=== PATIENT | female | born 1970 | race Caucasian/White ===

== ENCOUNTER → 2018-05-22 | Outpatient (CLI) | payer OTHER ==
[~2018-05-22] MED LIST: ACT30 PO; BIOTCAP2 PO; FOLI1TAB8 PO; GLIP-199 PO; IBUP-1050 PO; LOSA1TAB PO; METF-384 PO; PANT40TA PO; PREG1CAP70 PO; SIMV10TA2 PO; TRAM-10 PO
--- NOTE | 2018-05-22 11:50 | DIAGNOSTIC IMAGING REPORT ---
CHEST 2 VIEWS ROUTINE CLINICAL HISTORY: Preoperative chest COMPARISON STUDY: 11/02/2015 FINDINGS: The cardiac and mediastinal contours are normal. There is no evidence of focal pulmonary consolidation. There is no evidence of failure. No pleural effusions are visualized.[ There are postsurgical changes present within the cervical spine. IMPRESSION: No active disease in the chest. Electronically signed by: Des Galeana M.D. 05/22/2018 11:17 AM Dictated Date/Time: 05/22/2018 11:13 AM
[2018-05-22 12:04] LABS: PTT PATIENT 25.1 SECONDS (21.0-31.0)
[2018-05-22 13:38] LABS: BASO % 0.9 %; BASO ABS # 0.07 K/uL (0-0.2); HEMATOCRIT 34.9 % (37-47); HEMOGLOBIN 11.5 g/dL (12.0-16.0); IG# 0.04 K/uL (0.00-0.02); LYMPH % 26.4 %; LYMPH ABS # 2.02 K/uL (1.2-3.4); MEAN CELL VOLUME 85.1 fL (80-100); MEAN PLATELET VOLUME 10.1 fL (7.4-10.4); MONO ABS # 0.38 K/uL (0.11-0.59); NEUT % 67.2 %; NEUT ABS # 5.15 K/uL (1.4-6.5); PLATELET COUNT 304 K/uL (130-400); RED CELL DISTRIBUTION WIDTH CV 16.9 % (11.5-14.5); RED CELL DISTRIBUTION WIDTH SD 52.1 fL (36.4-46.3); WHITE BLOOD COUNT 7.66 K/uL (4.8-10.8)
[2018-05-22 13:44] LABS: BLOOD UREA NITROGEN 10 mg/dl (7-18); CALCIUM 8.3 mg/dl (8.5-10.1); CARBON DIOXIDE 24 mmol/L (21-32); CREATININE 0.89 mg/dl (0.60-1.20); GLUCOSE 195 mg/dl (70-99); POTASSIUM 4.6 mmol/L (3.5-5.1); SODIUM 137 mmol/L (136-145)
== END | disposition home or self-care (01) ==
LOC: C.CPL 09:05
PROVIDERS: ATTEND Orthopaedic Surgery Orthopaedic Surgery of the Spine
DX: Z01.810 Encounter for preprocedural cardiovascular examination (principal); Z01.811 Encounter for preprocedural respiratory examination; Z01.812 Encounter for preprocedural laboratory examination

== ENCOUNTER 2018-06-05 07:42 | Inpatient (IN) | payer BC, OTHER ==
[2018-05-17 15:36] VITALS: BMI 35.0
[2018-05-22 09:27] VITALS: BMI 34.0
--- NOTE | 2018-05-22 09:29 | PAT Medication Instructions ---
Service Date May 22, 2018. Current Home Medication List Biotin (Biotin 5000), 5 MG PO QAM Folic Acid (Folvite), 1 MG PO QAM Glipizide (Glipizide Er), 1 TAB PO BID Ibuprofen (Advil), 800 MG PO PRN Losartan Potassium (Cozaar), 25 MG PO QPM Metformin Hcl (Glucophage), 1,000 MG PO BID Pantoprazole (Protonix), 40 MG PO QPM Pioglitazone (Actos), 15 MG PO QPM Pregabalin (Lyrica), 150 MG PO BID Simvastatin (Zocor), 10 MG PO QPM Tramadol (Ultram), 50 MG PO Q4H PRN for Pain Medication Instructions For Your Scheduled Surgery -Instructions per surgeon: Ibuprofen (Advil), 800 MG PO PRN - Hold the following medications the morning of surgery: Biotin (Biotin 5000), 5 MG PO QAM Folic Acid (Folvite), 1 MG PO QAM Glipizide (Glipizide Er), 1 TAB PO BID Metformin Hcl (Glucophage), 1,000 MG PO BID - Take the following medications the morning of surgery with a sip of water: Pregabalin (Lyrica), 150 MG PO BID Tramadol (Ultram), 50 MG PO Q4H PRN for Pain (if needed, may be taken up to four hours before surgery) - Take the following medications as scheduled the night before surgery: Glipizide (Glipizide Er), 1 TAB PO BID Losartan Potassium (Cozaar), 25 MG PO QPM Metformin Hcl (Glucophage), 1,000 MG PO BID Pantoprazole (Protonix), 40 MG PO QPM Pioglitazone (Actos), 15 MG PO QPM Pregabalin (Lyrica), 150 MG PO BID Simvastatin (Zocor), 10 MG PO QPM Tramadol (Ultram), 50 MG PO Q4H PRN for Pain (if needed) If you have any questions please call us at [phone] or [phone] or [phone]
[~2018-06-05] VITALS: Ht 175.3 cm; Wt 105.9 kg
[2018-06-05] VITALS (9 sets, daily range): BP systolic 98–128; BP diastolic 62–78; PULSE 67–84; TEMP 36.4–36.8; O2SAT 92–98; BMI 34.0
[~2018-06-05 07:42] MED LIST changes: +ACETAMINOPHEN 500 MG TAB PO SCH; +CEFAZOLIN 2000MG IV PUSH 15 ML IV SCH; +CeleBREX 200 MG CAP PO SCH; +GABAPENTIN 900 MG PO SCH; +LACTATED RINGER'S 1000ML 1,000 ML IV SCH; +SCOPOLAMINE 1.5 MG TDSY TD SCH
[2018-06-05] MEDS ORDERED: MIDAZOLAM HCL 1 MG/ML 2ML VIAL ONE (09:24)
[2018-06-05] MEDS ORDERED: HYDROmorphone INJ 2 MG/ML SYR/VIAL ONE ×2 (09:24→10:53)
[2018-06-05] MEDS ORDERED: FENTANYL CITRATE INJ 50 MCG/1 ML 2 ML VIAL ONE ×3 (09:24→12:12)
[2018-06-05] MEDS ORDERED: EpHEDrine SULFATE INJ 50 MG/ML AMP IV PRN (09:30)
[2018-06-05] MEDS ORDERED: ONDANSETRON INJ 2 MG/ML 2 ML VIAL IV PRN ×2 (09:30→12:15)
[2018-06-05] MEDS ORDERED: ATROPINE SULFATE 0.1 MG/ML 5ML SYR IV PRN (09:30)
[2018-06-05] MEDS ORDERED: LIDOCAINE HCL 2% 2 ML VIAL (20MG/ML) ONE (09:57)
[2018-06-05] MEDS ORDERED: PROPOFOL IV EMULSION 10 MG/ML 20 ML VIAL ONE (09:57)
[2018-06-05] MEDS ORDERED: DEXAMETHASONE SOD INJ 4 MG/ML VIAL ONE (09:57)
--- NOTE | 2018-06-05 10:02 | History & Physical Bridge Note ---
H&P Re-Evaluation Bridge Note: I have examined the patient, reviewed the History & Physical and in the interval since the performance of the History & Physical I have noted the following changes of clinical significance: No changes noted
--- NOTE | 2018-06-05 10:03 | History and Physical ---
History & Physical Date Jun 05, 2018. Chief Complaint Back and leg pain History of Present Illness The patient is a 47 year old female with complaints of Additional History Hepatic Disease: No Endocrine Disorder: No Kidney Disease: No Hypertension: Yes Heart Disease: No Bleeding Tendencies: No Infectious Diseases: No Other: Morbid obesity and diabetes Allergies Coded Allergies: Oxycodone (Verified Allergy, Intermediate, HIVES, pruritis, 06/05/18) Home Medications Scheduled Biotin (Biotin 5000), 5 MG PO QAM Folic Acid (Folvite), 1 MG PO QAM Glipizide (Glipizide Er), 1 TAB PO BID Ibuprofen (Advil), 800 MG PO PRN Losartan Potassium (Cozaar), 25 MG PO QPM Metformin Hcl (Glucophage), 1,000 MG PO BID Pantoprazole (Protonix), 40 MG PO QPM Pioglitazone (Actos), 30 MG PO QPM Pregabalin (Lyrica), 150 MG PO BID Simvastatin (Zocor), 10 MG PO QPM Scheduled PRN Tramadol (Ultram), 50 MG PO Q4H PRN for Pain Physical Examination Skin: warm/dry, no rash Eyes: normal inspection, EOMI, sclerae normal ENT: normal ENT inspection, pharynx normal Head: normocephalic, atraumatic Neck: supple, no adenopathy, trachea midline Respiratory/Chest: lungs clear, normal breath sounds, no respiratory distress Cardiovascular: regular rate, rhythm, no edema, no murmur Abdomen / GI: normal bowel sounds, non tender Back: normal inspection Extremities: normal inspection, normal range of motion Neurologic/Psych: no motor/sensory deficits, alert, normal reflexes, oriented x 3 Diagnosis Lumbar spinal stenosis with neurogenic claudication Plan of Treatment Decompression fusion L3-4
[2018-06-05] MEDS ORDERED: BUPIVACAINE/EPINEPHRINE 0.5% MPF 1:200,000 30 ML VIAL ONE (10:23)
[2018-06-05] MEDS ORDERED: BACITRACIN 50000 UNIT VIAL ONE ×2 (10:23→10:58)
[2018-06-05] MEDS ORDERED: SODIUM CHLORIDE 0.9% PF 50 ML VIAL ONE (11:04)
[2018-06-05] MEDS ORDERED: BUPIVACAINE 0.5 % 5 MG/1 ML PF 10ML VIAL ONE (11:04)
[2018-06-05] MEDS ORDERED: BUPIVACAINE LIPOSOME 1/3% 266 MG/20 ML VIAL ONE (11:04)
[2018-06-05] MEDS ORDERED: ONDANSETRON INJ 2 MG/ML 2 ML VIAL ONE ×2 (11:28→12:08)
[2018-06-05] MEDS ORDERED: GLYCOPYRROLATE INJ 0.2 MG/ML VIAL ONE (11:28)
[2018-06-05] MEDS ORDERED: EpHEDrine SULFATE 50MG/5ML SYR ONE (11:28)
[2018-06-05] MEDS ORDERED: METOCLOPRAMIDE HCL INJ 5 MG/ML 2 ML VIAL ONE (11:28)
[2018-06-05] MEDS ORDERED: RANITIDINE HCL 25 MG/ML INJ ONE (11:28)
[2018-06-05] MEDS ORDERED: ROCURONIUM BROMIDE 10 MG/ML 5 ML VIAL ONE (11:28)
[2018-06-05] MEDS ORDERED: NEOSTIGMINE METHYLSULFATE 1 MG/ML 10ML VIAL ONE (11:28)
[2018-06-05] MEDS ORDERED: FLOSEAL HEMOSTATIC MATRIX 10ML TOP ONE (12:02)
[2018-06-05] MEDS ORDERED: KETOROLAC TROMETHAMINE 30 MG/ML VIAL ONE (12:08)
--- NOTE | 2018-06-05 12:09 | [facility] Operative Report ---
Operative Report Operative Date Jun 05, 2018. Pre-Operative Diagnosis Lumbar spinal stenosis with neurogenic claudication Post-Operative Diagnosis Lumbar spinal stenosis with neurogenic claudication Procedure(s) Performed 1. Lumbar decompression medial facetectomy foraminotomy L3-4 per #2 posterior spinal fusion L3-4 per #3 placed posterior instrumentation L3-4. #4 interbody fusion L3-4 per #5 placement of titanium cage 11 x 26 mm L3-4 per #6 placement of local autograft in the posterior gutters. #7 infuse: Sponge, mass graft the posterior gutters and ostial amp in the interbody space. Surgeon Dr. Cooley Acetaldehyde Converter Operator Surgeon(s) Mary Parker PA-C Estimated Blood Loss 100 ml Findings Severe spinal stenosis Specimens none per surgeon Anesthesia Type General Description of Procedure Patient was met with preoperatively case discussed all questions addressed. After informed consent obtained patient was taken to the operative suite underwent intubation placed in a prone position on the Rashel table on top of the Vikash frame. All bony prominences well-padded eyes inspected to ensure no external pressure placed upon the. This point the lumbar spine was prepped and draped in the normal sterile fashion. Sharp dissection with the assistance Bovie cautery was performed down to and exposing the lamina and transverse processes of L3 and L4 bilaterally. From caudocephalad fashion complete laminectomy of L3 is performed addressing severe lateral recess and foraminal stenosis. Pedicle screws are then placed in L3 and L4 bilaterally with the assistance of fluoroscopy and the purposes suhail placed. Through a transforaminal approach on the right complete discectomy was performed endplates created to subcortical bleeding bone and a 11 x 26 mm titanium cage filled with ostium bone graft tapped in position. The rods were then compressed locked in final position bilaterally. The transverse processes of L3 and L4 burred to subcortical bleeding bone. Infuse collagen sponge master graft local autograft placed in the posterior gutters. 15 round BRIDGETT drain inserted. Approximately 100 cc of Exparel injected in the musculature. Incision was then closed with 1 Vicryl fascia 2-0 Vicryl subcutaneous 3 4 Monocryl for fashion closure Steri-Strips sterile dressings placed. Patient will continue PACU stable condition. Please note Mary Sullivan was present throughout the entire procedure involved in patient positioning complex portions of the surgery and fashion closure. I attest to the content of the Intraoperative Record and any orders documented therein. Any exceptions are noted below.
[2018-06-05] MEDS ORDERED: PHARMACY GLYCEMIC MGMT CONSULT PRN (12:10)
[2018-06-05] MEDS ORDERED: SOD PHOSPHATE/SOD BIPHOSPHATE ENEMA 132 ML BTL PR PRN (12:15)
[2018-06-05] MEDS ORDERED: BISACODYL 10 MG SUPP PR PRN (12:15)
[2018-06-05] MEDS ORDERED: METOCLOPRAMIDE HCL INJ 5 MG/ML 2 ML VIAL IV PRN (12:15)
[2018-06-05] MEDS ORDERED: NALOXONE HCL 0.4 MG/1 ML VIAL/CARP IV PRN (12:15)
[2018-06-05] MEDS ORDERED: ALUMINUM/MAGNESIUM SUSP 30 ML UDC PO PRN (12:15)
[2018-06-05] MEDS ORDERED: TRAMADOL HCL 50 MG TAB PO PRN (12:15)
[2018-06-05] MEDS ORDERED: PROMETHAZINE HCL INJ 12.5 MG in SODIUM CHLORIDE 0.9% 50ML 50 ML IV PRN (12:15)
[2018-06-05] MEDS ORDERED: ACETAMINOPHEN 500 MG TAB PO PRN (12:15)
[2018-06-05] MEDS ORDERED: FAMOTIDINE 20 MG TAB PO PRN (12:15)
[2018-06-05] MEDS ORDERED: LORAZEPAM INJ 0.5 MG in SYRINGE 0.75 ML IV PRN (12:15)
[2018-06-05] MEDS ORDERED: MAGNESIUM HYDROXIDE SUSP 30 ML UDC PO PRN (12:15)
[2018-06-05] MEDS ORDERED: DO NOT ADMINISTER PNEUMOCOCCAL VACCINE PRN (12:15)
[2018-06-05] MEDS ORDERED: LORAZEPAM 0.5 MG TAB PO PRN (12:15)
[2018-06-05] MEDS ORDERED: hydrOXYzine HCL 25 MG TAB PO PRN (12:15)
[2018-06-05] MEDS ORDERED: DO NOT ADMINISTER FLU VACCINE PRN (12:15)
[2018-06-05] MEDS ORDERED: ACETAMINOPHEN IV 100 ML IV PRN (12:15)
--- NOTE | 2018-06-05 12:24 | DIAGNOSTIC IMAGING REPORT ---
INTRAOPERATIVE RADIOGRAPHS CLINICAL HISTORY: L3-L4 spinal fusion. Fluoroscopy time: 20 seconds. FINDINGS: 2 spot fluoroscopic views of the lumbar spine are presented. There has been discectomy at L3-L4 with laminectomy and posterior fusion at this level. Interpedicular screws are present at both levels. The orthopedic hardware appears intact. IMPRESSION: Intraoperative images from L3 -L4 spinal fusion as above. Electronically signed by: Eduardo Mccrary M.D. 06/05/2018 12:23 PM Dictated Date/Time: 06/05/2018 12:22 PM
[2018-06-05] MEDS: FENTANYL CITRATE INJ 50 MCG/1 ML 2 ML VIAL IV PRN ×4 (12:46→13:05)
--- NOTE | 2018-06-05 13:18 | Anesthesiology Progress Note ---
Anesthesia Post Op Note Date & Time Jun 05, 2018 at 13:18 Vital Signs Pain Intensity: 5 Vital Signs Past 12 Hours Date Time Temp Pulse Resp B/P (MAP) Pulse Ox O2 Delivery O2 Flow Rate FiO2 06/05/18 13:10 69 16 132/62 100 Nasal Cannula 3 06/05/18 13:00 76 16 128/62 100 Nasal Cannula 3 06/05/18 12:50 65 13 118/64 99 Nasal Cannula 3 06/05/18 12:40 64 10 131/66 100 Oxymask 10 06/05/18 12:30 70 11 151/66 97 Oxymask 10 06/05/18 12:22 36.5 78 14 195/108 99 Oxymask 10 06/05/18 08:25 36.5 74 20 119/73 98 Room Air Notes Mental Status: alert / awake / arousable, participated in evaluation Pt Amnestic to Procedure: Yes Nausea / Vomiting: adequately controlled Pain: adequately controlled Airway Patency, RR, SpO2: stable & adequate BP & HR: stable & adequate Hydration State: stable & adequate Anesthetic Complications: no major complications apparent
[2018-06-05] MEDS: SODIUM CHLORIDE 0.9% 1000ML 1,000 ML IV SCH ×2 (13:50→19:16)
--- NOTE | 2018-06-05 15:07 | Pharmacy Progress Note ---
Pharmacy Glycemic Short Note 2 Date of Service Jun 05, 2018. OUTPATIENT ANTIDIABETIC REGIMEN: * Glipizide ER 10mg PO BID * Metformin 1gm PO BID * Actos 30mg PO qPM * HbA1c: pending with am labs (8.9% 12/11/15) ASSESSMENT: * Ms Bhat is a 47yo diabetic patient s/p lumbar procedure with Dr Cooley this morning. * Patient received 12mg of IV dexamethasone in the OR, which is expected to contribute to significant steroid-induced hyperglycemia. * Patient is ordered a type 2 diabetic diet. PLAN FOR INPATIENT GLYCEMIC CONTROL: * Hold outpatient oral diabetes medications * Will consider resuming once diet is being tolerated post-op as long as renal function remains stable. * Basal insulin * Lantus 20 units SQ x1 dose this evening * will order additional Lantus dose in the am if warranted * Bolus insulin * NovoLog per scale ACHS or Q6hrs while NPO * Goal Range: Low 120 mg/dL - High 160 mg/dL * Correction Factor: 20 mg/dL/unit * Nutritional / Prandial insulin per carb ratio of 1 unit per 8 grams CHO consumed PLAN FOR DISCHARGE: * pending A1c results in am
[2018-06-05] MEDS: CHECK SCOPOLAMINE PATCH PLACEMENT SCH (15:32)
[2018-06-05] MEDS: HYDROCODONE/ACETAMIN 5/325MG TAB PO PRN ×3 (15:37→21:10)
[2018-06-05] MEDS: CEFAZOLIN IV 2,000 MG in SYRINGE 0 ML IV SCH (17:40)
[2018-06-05] MEDS: INSULIN ASPART 100 UNITS/ML 3 ML PEN SC SCH ×2 (17:43→22:06)
[2018-06-05] MEDS ORDERED: LANTUS PER UNIT CHARGE SQ SCH (18:00)
[2018-06-05] MEDS ORDERED: PIOGLITAZONE 30 MG PO SCH (21:00)
[2018-06-05] MEDS: DOCUSATE SODIUM/SENNA 50/8.6MG TAB PO SCH (21:00)
[2018-06-05] MEDS ORDERED: NON-FORMULARY MEDICATION (Glipizide (Glipizide Er) 1 TAB) PO SCH (21:00)
[2018-06-05] MEDS: SIMVASTATIN 10 MG TAB PO SCH (21:03)
[2018-06-05] MEDS: LOSARTAN POTASSIUM 25 MG TAB PO SCH (21:04)
[2018-06-05] MEDS: PANTOprazole SOD 40 MG TAB PO SCH (21:04)
[2018-06-05] MEDS: PREGABALIN 150 MG CAP PO SCH (21:04)
[2018-06-05] MEDS ORDERED: INSULIN HUMAN REGULAR PER UNIT 5 UNITS in SYRINGE 4.95 ML IV SCH (21:15)
[2018-06-06] MEDS ORDERED: LANTUS PER UNIT CHARGE SQ SCH
[2018-06-06] MEDS: CHECK SCOPOLAMINE PATCH PLACEMENT SCH ×4 (00:06→22:45)
[2018-06-06] MEDS: INSULIN ASPART 100 UNITS/ML 3 ML PEN SC SCH ×6 (00:24→21:01)
[2018-06-06] MEDS: SODIUM CHLORIDE 0.9% 1000ML 1,000 ML IV SCH ×2 (02:03→08:10)
[2018-06-06] MEDS: CEFAZOLIN IV 2,000 MG in SYRINGE 0 ML IV SCH (02:04)
[2018-06-06] MEDS: HYDROCODONE/ACETAMIN 5/325MG TAB PO PRN ×5 (02:15→22:55)
[2018-06-06 04:26] VITALS: BP 102/69; PULSE 64; TEMP 36.6; O2SAT 96
[2018-06-06 05:56] LABS: BASO % 0.1 %; BASO ABS # 0.01 K/uL (0-0.2); HEMATOCRIT 31.5 % (37-47); HEMOGLOBIN 9.9 g/dL (12.0-16.0); IG# 0.04 K/uL (0.00-0.02); LYMPH % 7.6 %; LYMPH ABS # 1.09 K/uL (1.2-3.4); MEAN CELL VOLUME 85.4 fL (80-100); MEAN CORPUSCULAR HEMOGLOBIN 26.8 pg (25-34); MEAN CORPUSCULAR HGB CONC 31.4 g/dl (32-36); MEAN PLATELET VOLUME 9.9 fL (7.4-10.4); MONO % 6.2 %; MONO ABS # 0.89 K/uL (0.11-0.59); NEUT % 85.8 %; NEUT ABS # 12.26 K/uL (1.4-6.5); PLATELET COUNT 230 K/uL (130-400); RED CELL DISTRIBUTION WIDTH CV 16.2 % (11.5-14.5); RED CELL DISTRIBUTION WIDTH SD 50.8 fL (36.4-46.3); WHITE BLOOD COUNT 14.29 K/uL (4.8-10.8)
[2018-06-06 06:23] LABS: CALCIUM 7.8 mg/dl (8.5-10.1); CREATININE 0.84 mg/dl (0.60-1.20); POTASSIUM 4.2 mmol/L (3.5-5.1)
[2018-06-06 07:08] LABS: HEMOGLOBIN A1C 8.7 % (4.5-5.6)
[2018-06-06 07:30] VITALS: BP 92/61; PULSE 70; TEMP 36.9; O2SAT 100
[2018-06-06] MEDS ORDERED: LANTUS PER UNIT CHARGE SQ ONE (07:30)
[2018-06-06] MEDS ORDERED: NURSING VERBAL MED ORDER ONE (08:30)
[2018-06-06] MEDS: PREGABALIN 150 MG CAP PO SCH ×2 (08:30→20:54)
[2018-06-06] MEDS ORDERED: KETOROLAC TROMETHAMINE 30 MG/ML VIAL IV PRN (09:30)
[2018-06-06] MEDS ORDERED: HYDR-5688 PO (09:30)
--- NOTE | 2018-06-06 09:31 | Discharge Instructions ---
Discharge Instructions Date of Service Jun 06, 2018. Admission Reason for Admission: Lumbar Spinal Stenosis Discharge Discharge Diagnosis / Problem: lumbar stenosis Discharge Goals Goal(s): Improve function Activity Recommendations Activity Limitations: per Instructions/Follow-up section . Instructions / Follow-Up Instructions / Follow-Up ACTIVITY RECOMMENDATIONS: SELF CARE INSTRUCTIONS AFTER THORACIC/LUMBAR FUSIONS 1. You may walk to your tolerance. It is good exercise for your legs and back. Expect some back and intermittent leg aches and pains. 2. You may perform "counter-top" level activities (make a sandwich, rohit with a project, etc.). 3. No bending or lifting of more than 10 pounds or back twisting of any nature (roll like a log when turning in bed). 4. You may ride in a car for 20-30 minutes at a time. No driving until after your first visit with your doctor. 5. Frequent changes of position and restricting sitting to 30 minutes at a time will help limit the amount of back spasms and stiffness you may experience. 6. You may discontinue the use of ambulatory aids (cane, crutches, etc.) once your strength and confidence allow. 7. You may sizing machine operator the shower and let water strike your incision when you arrive home at least once daily. Do not take a tub bath, sit in a hot tub or go into a swimming pool until after your first recheck in the office. SPECIAL CARE INSTRUCTIONS: VERY IMPORTANT TO READ AND REVIEW A. Your surgical incision has been closed with a cosmetic suture under the skin that will dissolve in about 6 weeks. In 14 days, you can use a pair of clean scissors and cut the suture that is left outside of the skin at the ends of your incision. 1. The small skin tapes can be removed 7 days after surgery if they have not fallen off by that point. 2. You may keep the wound open to air as much as possible to promote healing after post-op day number 5 unless told otherwise by your doctor. 3. If you think the wound looks like it is becoming infected (redness or worsening drainage) and/or you are experiencing fever, chill or worsening back pain and muscle spasms, contact the office so that we may evaluate you as soon as possible. B. Complications are uncommon, but please contact us if you have any signs or symptoms of: 1. wound infection (fever higher than 102.5 degrees F, redness, separation of wound, drainage, or increasing pain from the incision) 2. blood clots in legs (pain, swelling, redness and warmth in legs) 3. urinary tract infection (fever higher than 102.5 degrees F, burning upon urination or increased frequency of urination) 4. nerve problems (inability to walk on your toes or heels, numbness, loss of bowel or bladder control) 5. any other symptoms that concern you C. Please call the office at if you have any concerns or questions about your operation or recovery. D. No smoking! Smoking drastically decreases the chance of a solid fusion. E. Do not take any anti-inflammatory medications (Indocin, Advil, Motrin, Aspirin, Naprosyn, etc.) as these may inhibit the chance of a solid fusion. Tylenol is okay to take for pain. MANAGING PAIN AFTER SPINAL SURGERY 1. Narcotic medication is intended for short-term use and will be provided for surgical pain. Surgical pain usually lasts for a period of 4-6 weeks. Narcotic medication includes Percocet, Vicodin, Darvocet, Tylenol #3 or Lortab. 2. Longer-term pain is more appropriately treated with non-narcotic medication such as Tylenol ES. 3. Muscle spasm is not appropriately treated with narcotics. Muscle relaxers such as Soma, Flexeril or Skelaxin can be used along with Tylenol ES. 4. Remember that we all live with some "aches and pains". This is not unusual or uncommon after an injury or as we get older. a. Back pain is expected and may include muscle spasms for 4 to 6 weeks after surgery. The pain should gradually improve. If the pain worsens for no apparent reason, please contact the office. b. Intermittent leg pain may also be experienced and should not be concerned about unless it worsens for no apparent reason. If so, please contact the office. 5. We will provide appropriate medication within the normal guidelines of their prescribed use. We will also be very cautious and aware of potential abuse and extended duration of patients' medication needs. a. Pain medications are for your comfort and to assist with sleep and rest so that the tissue can heal. They are not provided in order to return to normal activity and should not be used through the day. To do so or worsening pain at night can result from ongoing tissue damage and development of tolerance to the prescribed medicine. 6. Please allow 2-3 days to process refills. Prescriptions will not be mailed but must be picked up at the office. FOLLOW UP VISIT: Keep your scheduled follow-up appointment. Any questions, please call the office at . Current Hospital Diet Patient's current hospital diet: Diabetes Type 2 Diet Discharge Diet Recommended Diet: Regular Diet Procedures Procedures Performed: 1. Lumbar decompression medial facetectomy foraminotomy L3-4 per #2 posterior spinal fusion L3-4 per #3 placed posterior instrumentation L3-4. #4 interbody fusion L3-4 per #5 placement of titanium cage 11 x 26 mm L3-4 per #6 placement of local autograft in the posterior gutters. #7 infuse: Sponge, mass graft the posterior gutters and ostial amp in the interbody space. Pending Studies Studies pending at discharge: no Laboratory Results Hemoglobin A1c Test 06/06/18 05:22 Range/Units Estimated Average Glucose 203 mg/dl Hemoglobin A1c 8.7 H 4.5-5.6 % Medical Emergencies . Who to Call and When: Medical Emergencies: If at any time you feel your situation is an emergency, please call 911 immediately. . Non-Emergent Contact Non-Emergency issues call your: Primary Care Provider . "Provider Documentation" section prepared by Patric Cooley. .
--- NOTE | 2018-06-06 09:34 | Progress Note ---
Progress Note Date of Service Jun 06, 2018. Progress Note Back pain is controlled leg symptoms are improved. Vital signs are stable. BRIDGETT drain decreasing probably. On exam she is good strength testing is up and ambulatory. Assessment status post lumbar decompression fusion per plan at this time anticipate discharge home tomorrow.
--- NOTE | 2018-06-06 10:10 | Pharmacy Progress Note ---
Pharmacy Glycemic Short Note 2 Date of Service Jun 06, 2018. OUTPATIENT ANTIDIABETIC REGIMEN: * Glipizide ER 10mg PO BID * Metformin 1gm PO BID * Actos 30mg PO qPM * HbA1c: 8.7% 06/06/18 (8.9% 12/11/15) ASSESSMENT: 06/06/18: * Patient became significantly hyperglycemic last evening. * Patient was given IV insulin bolus and supplemental dose of Lantus. Lantus dose also ordered for this morning. * Plan is for discharge tomorrow. 06/05/18 * Ms Bhat is a 47yo diabetic patient s/p lumbar procedure with Dr Cooley this morning. * Patient received 12mg of IV dexamethasone in the OR, which is expected to contribute to significant steroid-induced hyperglycemia. * Patient is ordered a type 2 diabetic diet. PLAN FOR INPATIENT GLYCEMIC CONTROL: * Hold outpatient oral diabetes medications * Will consider resuming once diet is being tolerated post-op as long as renal function remains stable. * Basal insulin * Lantus 20 units SQ last evening plus 15 units at midnight * Lantus 20 units SQ this morning * Bolus insulin * NovoLog per scale ACHS or Q6hrs while NPO * Goal Range: Low 120 mg/dL - High 160 mg/dL * Correction Factor: 15 mg/dL/unit * Nutritional / Prandial insulin per carb ratio of 1 unit per 5 grams CHO consumed PLAN FOR DISCHARGE: * Patient's A1c (8.7%) suggests sub-optimal glycemic control as an outpatient ( estimated average glucose: 203 mg/dL). * Per patient's conversation with CDE, Actos was only recently added to her regimen and BSGs have been ranging from ~140-160 since addition. * If A1c remains elevated on triple therapy, would consider transitioning patient to Metformin + basal/bolus insulin. * Recommend prompt f/u with PCP to discuss transitioning to insulin regimen.
[2018-06-06 10:38] VITALS: BP 121/73; PULSE 80; TEMP 36.5; O2SAT 94
[2018-06-06 13:09] VITALS: Ht 175.3 cm; Wt 105.9 kg
[2018-06-06 15:28] VITALS: BP 109/63; PULSE 73; TEMP 36.8; O2SAT 99
[2018-06-06 15:42] VITALS: O2SAT 99
[2018-06-06] MEDS: DOCUSATE SODIUM/SENNA 50/8.6MG TAB PO SCH (20:54)
[2018-06-06] MEDS: LOSARTAN POTASSIUM 25 MG TAB PO SCH (20:54)
[2018-06-06] MEDS: SIMVASTATIN 10 MG TAB PO SCH (20:54)
[2018-06-06] MEDS: PANTOprazole SOD 40 MG TAB PO SCH (20:54)
[2018-06-06 22:59] VITALS: BP 115/66; PULSE 79; TEMP 36.5; O2SAT 95
[2018-06-07] MEDS: HYDROCODONE/ACETAMIN 5/325MG TAB PO PRN ×2 (03:22→07:54)
[2018-06-07] MEDS ORDERED: POLYETHYLENE (MIRALAX) 17 GM PACK PO SCH (06:00)
[2018-06-07 07:12] VITALS: BP 102/66; PULSE 74; TEMP 37.1; O2SAT 98
[2018-06-07] MEDS: CHECK SCOPOLAMINE PATCH PLACEMENT SCH (07:51)
[2018-06-07] MEDS ORDERED: LANTUS PER UNIT CHARGE SQ ONE (08:00)
[2018-06-07] MEDS: INSULIN ASPART 100 UNITS/ML 3 ML PEN SC SCH (08:01)
[2018-06-07] MEDS: PREGABALIN 150 MG CAP PO SCH (08:35)
[2018-06-07 10:07] VITALS: BP 102/66; PULSE 74; TEMP 37.1; O2SAT 98
--- NOTE | 2018-06-07 13:32 | Discharge Summary ---
Orthopedic Discharge Summary Admission Date/Reason Jun 05, 2018 at 10:00 Lumbar Spinal Stenosis. Discharge Date/Disposition Jun 07, 2018 Home Diagnosis Principal Diagnosis: Lumbar spinal stenosis Admission Physical Exam As per Admitting History & Physical. Hospital Course Decompression fusion tolerated as well as taken to the orthopedic floor possibly. Postop day #1 she is up and amatory progress through postop day #2 BRIDGETT drain decreasing appropriately. Subsequently she was discharged home. Discharge orders and instructions can be found in the chart for further review. Discharge Instructions Please refer to the electronic Patient Visit Report (Discharge Instructions) for additional information.
== END 2018-06-07 10:55 | disposition home or self-care (01) | DRG 455 ==
LOC: C.ACU 07:42 → C.3E 10:00 → ENRESERV 12:47
PROVIDERS: ADMIT Orthopaedic Surgery Orthopaedic Surgery of the Spine; ATTEND Orthopaedic Surgery Orthopaedic Surgery of the Spine
PROC: 0SG00AJ Fusion of Lumbar Vertebral Joint with Interbody Fusion Device, Posterior Approach, Anterior Column, Open Approach (ICD-10-PCS; principal; 2018-06-05 10:15)
PROC: 0ST20ZZ Resection of Lumbar Vertebral Disc, Open Approach (ICD-10-PCS; principal; 2018-06-05 10:15)
PROC: 0SG00J1 Fusion of Lumbar Vertebral Joint with Synthetic Substitute, Posterior Approach, Posterior Column, Open Approach (ICD-10-PCS; principal; 2018-06-05 10:15)
DX: M48.062 Spinal stenosis, lumbar region with neurogenic claudication (principal); E11.9 Type 2 diabetes mellitus without complications; E66.01 Morbid (severe) obesity due to excess calories; Z68.34 Body mass index [BMI] 34.0-34.9, adult